=== PATIENT | male | born 1975 | race Caucasian/White ===

== ENCOUNTER 2019-09-27 18:54 | Emergency (ER) | payer BC ==
[~2019-09-27] VITALS: Ht 180.3 cm; Wt 110.7 kg
[2019-09-27 19:05] VITALS: Ht 180.3 cm; Wt 110.7 kg
[2019-09-27 19:35] LABS: PLATELET COUNT 204 x10^3mcL (130-400)
[2019-09-27 20:04] LABS: CALCIUM 9.1 mg/dL (8.5-10.1); CREATININE SERUM 2.2 mg/dL (0.7-1.3); POTASSIUM SERUM 4.6 mmol/L (3.5-5.1)
[2019-09-27 20:10] LABS: ALBUMIN 3.8 g/dL (3.4-5.0); BILIRUBIN TOTAL 0.46 mg/dL (0.20-1.00); TOTAL PROTEIN, SERUM 7.7 g/dL (6.4-8.2)
[2019-09-28 00:36] VITALS: BP 137/92
== END 2019-09-28 01:19 | disposition home or self-care (01) ==
LOC: ED 18:54
PROVIDERS: Specialist
DX: R19.7 Diarrhea, unspecified (principal); R10.84 Generalized abdominal pain; E11.9 Type 2 diabetes mellitus without complications; N28.9 Disorder of kidney and ureter, unspecified; K43.9 Ventral hernia without obstruction or gangrene; I10 Essential (primary) hypertension; Z94.0 Kidney transplant status; Z98.890 Other specified postprocedural states
CPT/HCPCS: J2405; J3010; J7030

== ENCOUNTER 2020-05-12 10:25 | Emergency (ER) | payer BC ==
[~2020-05-12] VITALS: Ht 180.3 cm; Wt 95.7 kg
[2020-05-12 10:37] VITALS: BP 122/89; Ht 180.3 cm; Wt 95.7 kg
== END 2020-05-12 11:30 | disposition home or self-care (01) ==
LOC: ED 10:25
DX: H92.02 Otalgia, left ear (principal); H72.92 Unspecified perforation of tympanic membrane, left ear; I10 Essential (primary) hypertension

== ENCOUNTER 2020-06-21 20:07 | Emergency (ER) | payer BC ==
[~2020-06-21] VITALS: Ht 180.3 cm; Wt 97.5 kg
[2020-06-21 20:17] VITALS: Ht 180.3 cm; Wt 97.5 kg
[2020-06-21] MEDS ORDERED: IBU600 M2 PO (21:37)
[2020-06-21 22:24] VITALS: BP 140/91
== END 2020-06-21 22:24 | disposition home or self-care (01) ==
LOC: ED 20:07
DX: S83.92XA Sprain of unspecified site of left knee, initial encounter (principal); I10 Essential (primary) hypertension; X58.XXXA Exposure to other specified factors, initial encounter; Y93.89 Activity, other specified; Y92.89 Other specified places as the place of occurrence of the external cause; Y99.8 Other external cause status
CPT/HCPCS: J1885